=== PATIENT | female | born 1955 | race Caucasian/White ===

== ENCOUNTER 2019-05-24 10:06 | Emergency (ER) | payer BC ==
[2019-05-24 10:15] VITALS: BP 155/77
--- NOTE | 2019-05-24 10:34 | UC ---
Abdominal Pain Female HPI - HPI Summary HPI Summary: Patient presents to urgent care with her daughter. Patient's medical history significant for chronic lumbar back pain related to herniated disc and osteophytes. Patient takes Lyrica, Soma as needed, and Celebrex for this chronically. Patient states on 05/15 she developed increased pain in her low thoracic region. Patient states the pain is paraspinal radiating anteriorly around the flank bilaterally. Patient states his pain has been increasing in intensity as well as frequency. States is like sharp stabbing pain. Patient has been taking her Soma every 6 hours applying heat with little improvement. Patient states she is also noticed over the last 5 days progressive abdominal distention and pressure. Patient denies nausea. Patient states she is belching. Patient states she thought she was constipated and took some over-the -counter laxatives. Patient had a small bowel movement 4 days ago and none since. Patient has not had much of an appetite. Patient states she is concerned that it feels like it is getting bigger and bloated. Patient denies any vaginal discharge, itching, odor. No dysuria or hematuria. Patient denies fevers or chills. Patient delayed getting evaluated she had significant medications. Patient last Soma was at 6:00 this morning. Patient did have some leftover Percocet that she took was short relief for her back and belly pain. Patient has had abdominal surgeries including a left oophorectomy, appendicitis, and repeat . Patient's never had an SBO. Patient reports she did have a colonoscopy that had some noncancerous polyps removed and she is not due for repeat for 4-5 years. Patient states she's never been bloated like this before and is concerned. Patient's medications is up-to-date in the EMR by triage nurse repeat this visit. Of note, pt had her routine chiropractor adjustment 05/13/19 - History of Current Complaint Chief Complaint: UCGU Stated Complaint: BACK,FLANK & ABDOMINAL PAIN Time Seen by Provider: 05/24/19 10:33 Hx Obtained From: Patient ?: No Onset/Duration: Gradual Onset Severity Initially: Mild Severity Currently: Mild Pain Intensity: 4 Allergies/Adverse Reactions: Allergies Allergy/AdvReac Type Severity Reaction Status Date / Time No Known Allergies Allergy Verified 05/24/19 10:15 PMH/Surg Hx/FS Hx/Imm Hx Previously Healthy: Yes - chronic back pain - Surgical History Surgical History: Yes Surgery Procedure, Year, and Place: 3 C SECTIONS -1980,83,86. APPENDECTOMY partial ooph - Family History Known Family History: Positive: Non-Contributory - Social History Occupation: Retired Lives: With Family Alcohol Use: Daily Substance Use Type: None Smoking Status (MU): Former Smoker Review of Systems All Other Systems Reviewed And Are Negative: Yes Constitutional: Positive: Fatigue Gastrointestinal: Positive: Abdominal Pain, Nausea Genitourinary: Positive: Negative Motor: Positive: Negative Musculoskeletal: Positive: Other: - back pain Physical Exam - Summary Physical Exam Summary: Vital Signs Reviewed: Yes A+Ox3, appears uncomfortable with position change Eyes: Conjunctiva Clear, SUNDAR. EOM intact and full ENT: Hearing grossly normal TM x 2 clear, turbinates wnl, mmoist, uvula midline , no exudate, no erythema Neck: Positive: Supple Respiratory: Positive: No respiratory distress, No accessory muscle use + CTA throughout no w/r Cardiovascular: RRR nl s1, s2 no m/r CBT <2 sec , no bruits abd + distension + tympanic, mild diffuse tenderness - no guarding, no rebound Musculoskeletal Exam: + TTP bilateral paraspinal low thoracic back pain increased with direct palp, ROM upper ext. normal tone Neurological: Positive: Alert, + sensation throughout Psychological: Positive: Normal Response To examiner Skin: Positive: folliculitis appearing rash b/l mid back - pt states appeared following heating pad use, no vesicles, not concerning for shingles, no ecchymosis Triage Information Reviewed: Yes Vital Signs: Initial Vital Signs Temp 97.8 F 05/24/19 10:11 Pulse 81 05/24/19 10:11 Resp 16 05/24/19 10:11 BP 155/77 05/24/19 10:11 Pulse Ox 100 05/24/19 10:11 Abd Pain Female Course/Dx - Course Course Of Treatment: Patient presents to urgent care with progressive back pain despite taking prescribed Lyrica, increasing Soma frequency, and Celebrex. Patient also reports 5-6 days of abdominal bloating. Patient has had little results following enemas but has been having flatus. Patient states she is concerned that her belly bloating and uncontrolled pain. No fevers or chills. No trauma. On exam vital show an elevated blood pressure. Likely related to pain and today's visit. Patient is in obvious discomfort. Patient with point tenderness bilateral paraspinal distal thoracic area. Patient also has a diffuse distended abdomen with mild diffused tenderness. Patient is tympanic on exam. Discussed with patient differential. Urine is not convincing for infection or renal colic. [facility] could have a partial SBO given her repeat abdominal surgeries. Given the progression of her symptoms and a complex medical history recommend tumors from her for further evaluation and testing. Patient states understanding of plan. Patient will go by private vehicle. Patient's only for pain prior to leaving and she declined. Spoke to Karen discharge coordinator in the ED, aware patient coming. - Differential Dx/Diagnosis Provider Diagnosis: Acute abdominal pain, Back pain Discharge ED - Sign-Out/Discharge Documenting (check all that apply): Patient Departure All imaging exams completed and their final reports reviewed: No Studies - Discharge Plan Condition: Stable Disposition: HOME-RECOMMEND TO ED Patient Education Materials: Acute Abdominal Pain (ED) Referrals: Arelis Yung NP [Primary Care Provider] - Additional Instructions: The doctor that evaluated you today thinks that you need additional testing that can be completed the emergency department. It is recommended that you go directly to emergency department for further evaluation. This evaluation may include blood work or imaging. This testing will be directed and decided by the provider that evaluate you at the emergency department. If pain becomes worse, you feel lightheaded, you have uncontrolled vomiting, or you have any other concerns while you are being driven to emergency department as recommended to pullover and contact 911. - Billing Disposition and Condition Condition: STABLE Disposition: Home-Recommend to ED
== END 2019-05-24 11:02 | disposition home health service (06) ==
LOC: UCEAST 10:06
DX: M54.5 Low back pain (principal); R10.9 Unspecified abdominal pain; R53.83 Other fatigue; R11.0 Nausea; Z87.891 Personal history of nicotine dependence; Z90.721 Acquired absence of ovaries, unilateral; Z90.49 Acquired absence of other specified parts of digestive tract; M10.9 Gout, unspecified; Z79.899 Other long term (current) drug therapy; I10 Essential (primary) hypertension; R07.9 Chest pain, unspecified
CPT/HCPCS: 81003; 87086; 99212; G0463

== ENCOUNTER 2019-05-24 11:20 | Emergency (ER) | payer BC ==
--- NOTE | 2019-05-24 12:07 | ED ---
Complex/Multi-Sys Presentation - History Of Current Complaint Chief Complaint: EDBackInjuryPain Time Seen by Provider: 05/24/19 11:48 Hx Obtained From: Patient - Allergies/Home Medications Allergies/Adverse Reactions: Allergies Allergy/AdvReac Type Severity Reaction Status Date / Time No Known Allergies Allergy Verified 05/24/19 11:24 PMH/Surg Hx/FS Hx/Imm Hx Previously Healthy: Yes Endocrine/Hematology History: Denies: Hx Diabetes Cardiovascular History: Denies: Hx Hypertension, Hx Pacemaker/ICD History: Denies: Hx Renal Disease Musculoskeletal History: Reports: Hx Osteoporosis Sensory History: Denies: Hx Hearing Aid Psychiatric History: Denies: Hx Panic Disorder - Surgical History Surgery Procedure, Year, and Place: 3 C SECTIONS -1980,83,86. APPENDECTOMY partial ooph Infectious Disease History: No Infectious Disease History: Denies: Traveled Outside the [place] in Last 30 Days - Family History Known Family History: Positive: Non-Contributory - Social History Alcohol Use: Daily Substance Use Type: Reports: None Smoking Status (MU): Former Smoker Physical Exam Vital Signs On Initial Exam: Initial Vitals Temp Pulse Resp BP Pulse Ox 96.5 F 87 19 162/88 98 05/24/19 11:21 05/24/19 11:21 05/24/19 11:21 05/24/19 11:21 05/24/19 11:21 Diagnostics - Vital Signs Vital Signs Temp Pulse Resp BP Pulse Ox 05/24/19 11:21 96.5 F 87 19 162/88 98 - Laboratory Result Diagrams: 05/24/19 12:20 05/24/19 12:20 Lab Statement: Any lab studies that have been ordered have been reviewed, and results considered in the medical decision making process. Complex Multi-Symp Course/Dx Course Of Treatment: ECG done at 1226 shows a sinus rhythm of 64bpm, normal axis , no ST elevation or depressoin. Discharge ED - Discharge Plan Condition: Improved Disposition: HOME Prescriptions: oxyCODONE/Acetamin 5/325 MG* [Percocet 5/325 TAB*] 1 tab PO Q6H PRN #12 tab MDD 4 PRN Reason: Pain - Moderate Patient Education Materials: Constipation (ED), High Fiber Diet (ED), Vertebral Compression Fracture (ED), Gas and Bloating (ED) Referrals: Varn,Arelis, NEWSP[employer]NAGING [Primary Care Provider] - Jennifer Xiao MD [Medical Doctor] - Additional Instructions: Call PCP tomorrow for close follow up appointment Pain medication as directed Alternate between ice and head Increase fluids and fiber in diet Miralax as directed for constipation Return to ER for increased pain, chest pain, difficulty breathing, leg weakness/ numbness, loss of bowel or bladder function, or if concerned - Billing Disposition and Condition Condition: IMPROVED Disposition: Home
[2019-05-24] MEDS ORDERED: Morphine 4 MG/ML VIAL (1 ml) 4 MG/ML VIAL IV ONE (12:10)
[2019-05-24] MEDS ORDERED: Ketorolac INJ* 30 MG/ML 1 ML VIAL IV PUSH ONE (12:11)
[2019-05-24 12:30] LABS: ABS Lymphocytes 1.2 10^3/ul (1.0-4.8); ABS Monocytes 0.4 10^3/ul (0-0.8); ABS Neutrophils 4.1 10^3/ul (1.5-7.7); Eosinophil % 0.7 %; Hematocrit 40 % (35-47); Hemoglobin 13.6 g/dL (12.0-16.0); Lymphocyte % 20.4 %; Mean Corpuscular HGB Conc 34 g/dL (31-36); Mean Corpuscular Hemoglobin 33 pg (27-31); Mean Corpuscular Volume 97 fL (80-97); Mean Platelet Volume 7.4 fL (7.4-10.4); Platelet Count 299 10^3/uL (150-450); Red Cell Distribution Width 13 % (10-15); White Blood Count 5.8 10^3/uL (3.5-10.8)
[2019-05-24 12:45] LABS: Albumin 4.6 g/dL (3.2-5.2); Albumin/Globulin Ratio 1.6 (1-3); BUN/Creatinine Ratio 12.3 (8-20); C Reactive Protein 17.66 mg/L (<8.01); Calcium 9.8 mg/dL (8.6-10.3); EGFR African American 129.6 (>60); EGFR Non-African American 107.1 (>60); Globulin 2.9 g/dL (2-4); Potassium 4.3 mmol/L (3.5-5.0); Total Bilirubin 0.4 mg/dL (0.2-1.0); Total Protein 7.5 g/dL (6.4-8.9)
[2019-05-24] MEDS ORDERED: Iohexol 300* (CONTRAST) 10 ML SDV IV ONE (13:45)
[2019-05-24 15:36] VITALS: BP 153/76
--- NOTE | 2019-05-26 17:38 | ED ---
Abdominal Pain/Female - HPI Summary HPI Summary: Patient is a 62-year-old female who presents emergency department for several days of worsening mid back pain and abdominal pain. Patient states she has a history of chronic low back pain but states pain today feels different. Patient does not recall any falls or injuries. Denies numbness, tingling or weakness in upper or lower extremities. Denies bowel or bladder incontinence or retention. Patient also notes she's been having increased diffuse abdominal pain and bloating. Denies chest pain, shortness of breath, cough, fever, urinary symptoms. Patient is a history of osteoporosis, chronic back pain. Prescribed Celebrex and Soma by pain clinic. Patient seen at [facility] prior to arrival referred to the ER for further evaluation. - History of Current Complaint Chief Complaint: EDBackInjuryPain Stated Complaint: BACK PAIN PER PT Time Seen by Provider: 05/24/19 11:48 Hx Obtained From: Patient Pain Intensity: 2 Pain Scale Used: 0-10 Numeric Allergies/Adverse Reactions: Allergies Allergy/AdvReac Type Severity Reaction Status Date / Time No Known Allergies Allergy Verified 05/24/19 11:24 PMH/Surg Hx/FS Hx/Imm Hx Previously Healthy: Yes Endocrine/Hematology History: Denies: Hx Diabetes Cardiovascular History: Denies: Hx Hypertension, Hx Pacemaker/ICD History: Denies: Hx Renal Disease Musculoskeletal History: Reports: Hx Osteoporosis Sensory History: Denies: Hx Hearing Aid Psychiatric History: Denies: Hx Panic Disorder - Surgical History Surgery Procedure, Year, and Place: 3 C SECTIONS -1980,83,86. APPENDECTOMY partial ooph Infectious Disease History: No Infectious Disease History: Denies: Traveled Outside the [place] in Last 30 Days - Family History Known Family History: Positive: Non-Contributory - Social History Occupation: Retired Lives: With Family Alcohol Use: Daily Substance Use Type: Reports: None Smoking Status (MU): Former Smoker Review of Systems Constitutional: Negative Negative: Fever Eyes: Negative ENT: Negative Cardiovascular: Negative Negative: Palpitations, Chest Pain Respiratory: Negative Negative: Shortness Of Breath, Cough Positive: Abdominal Pain, Nausea. Negative: Vomiting, Diarrhea Genitourinary: Negative Negative: dysuria, flank pain Positive: Other - mid back pain Skin: Negative Negative: Rash Neurological: Negative Negative: Weakness, Paresthesia, Numbness All Other Systems Reviewed And Are Negative: Yes Physical Exam Triage Information Reviewed: Yes Vital Signs On Initial Exam: Initial Vitals Temp Pulse Resp BP Pulse Ox 96.5 F 87 19 162/88 98 05/24/19 11:21 05/24/19 11:21 05/24/19 11:21 05/24/19 11:21 05/24/19 11:21 Vital Signs Reviewed: Yes Appearance: Positive: Well-Appearing - Pt. sitting on side of bed, appears in pain but nontoxic. Daughter present. Skin: Positive: Warm, Dry Head/Face: Positive: Normal Head/Face Inspection Eyes: Positive: Normal, EOMI, SUNDAR, Conjunctiva Clear Neck: Positive: Supple Respiratory/Lung Sounds: Positive: Clear to Auscultation, Breath Sounds Present. Negative: Rales, Rhonchi, Wheezes Cardiovascular: Positive: Normal, RRR Abdomen Description: Positive: Other: - Slightly distended. Abd. is soft with diffuse tenderness throughout. Musculoskeletal: Positive: Normal, Strength/ROM Intact, Other - 5/5 strength in bilateral UEs and LEs. Midline tenderness over distal T spine. Neurological: Positive: Normal, CN Intact II-III Psychiatric: Positive: Affect/Mood Appropriate Procedures - Sedation Patient Received Moderate/Deep Sedation with Procedure: No Diagnostics - Vital Signs Vital Signs Temp Pulse Resp BP Pulse Ox 05/24/19 15:35 97.0 F 81 18 153/76 99 05/24/19 11:21 96.5 F 87 19 162/88 98 - Laboratory Lab Results: Lab Results 05/24/19 05/24/19 05/24/19 Range/Units 12:20 12:20 12:20 WBC 5.8 (3.5-10.8) 10^3/uL RBC 4.10 (3.70-4.87) 10^6 /uL Hgb 13.6 (12.0-16.0) g/dL Hct 40 (35-47) % MCV 97 (80-97) fL MCH 33 H (27-31) pg MCHC 34 (31-36) g/dL RDW 13 (10-15) % Plt Count 299 (150-450) 10^3/uL MPV 7.4 (7.4-10.4) fL Neut % (Auto) 71.6 % Lymph % (Auto) 20.4 % [place]oup % (Auto) 6.5 % Eos % (Auto) 0.7 % Baso % (Auto) 0.8 % Absolute Neuts (auto) 4.1 (1.5-7.7) 10^3/ul Absolute Lymphs (auto) 1.2 (1.0-4.8) 10^3/ul Absolute Monos (auto) 0.4 (0-0.8) 10^3/ul Absolute Eos (auto) 0.0 (0-0.6) 10^3/ul Absolute Basos (auto) 0.0 (0-0.2) 10^3/ul Absolute Nucleated RBC 0.0 10^3/ul Nucleated RBC % 0.0 Sodium 132 L (135-145) mmol/L Potassium 4.3 (3.5-5.0) mmol/L Chloride 97 L (101-111) mmol/L Carbon Dioxide 26 (22-32) mmol/L Anion Gap 9 (2-11) mmol/L BUN 7 (6-24) mg/dL Creatinine 0.57 (0.51-0.95) mg/dL Est GFR ( Amer) 129.6 (>60) Est GFR (Non-Af Amer) 107.1 (>60) BUN/Creatinine Ratio 12.3 (8-20) Glucose 104 H (70-100) mg/dL Lactic Acid 0.7 (0.5-2.0) mmol/L Calcium 9.8 (8.6-10.3) mg/dL Total Bilirubin 0.40 (0.2-1.0) mg/dL AST 29 (13-39) U/L ALT 48 (7-52) U/L Alkaline Phosphatase 116 H (34-104) U/L Troponin I 0.00 (<0.03) ng/mL C-Reactive Protein 17.66 H (<8.01) mg/L Total Protein 7.5 (6.4-8.9) g/dL Albumin 4.6 (3.2-5.2) g/dL Globulin 2.9 (2-4) g/dL Albumin/Globulin Ratio 1.6 (1-3) Result Diagrams: 05/24/19 12:20 05/24/19 12:20 Lab Statement: Any lab studies that have been ordered have been reviewed, and results considered in the medical decision making process. 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 Patient with mid back pain and abdominal pain. Afebrile. Patient was given IV Toradol for pain , declined morphine. Given increase in symptoms well obtain CT scan for further evaluation. ECG done at 1226 shows a sinus rhythm of 64bpm, normal axis , no ST elevation or depressoin. Labs are unremarkable other than mildly low chloride and sodium and minimally elevated CRP. Urinalysis negative for infection from convenient care. CT scan of abdomen and pelvis is negative for acute findings but does show large amount of stool. CT scan of the T-spine shows age-indeterminate compression fracture of T9, reading per radiology. Reexamination patient is feeling better and able ambulate without difficulty. Suspect abdominal pain and bloating is secondary to constipation. Patient's pain today is consistent with T9 compression fracture. We'll have her follow- up with neurosurgery in her PCP. Small prescription for Percocet prescribed for pain. Discussed bowel regimen with patient and she would like to try MiraLAX. She will return to the ER symptoms change or worsen. Patient understands and agrees with plan. - Diagnoses Differential Diagnosis: Positive: Abdominal Aortic Aneurysm, ACS, Appendicitis, Bowel Obstruction, Constipation, Renal Colic, Urinary Tract Infection Provider Diagnoses: Abdominal pain, Constipation, Thoracic compression fracture Discharge ED - Sign-Out/Discharge Documenting (check all that apply): Patient Departure - Discharge Plan Condition: Improved Disposition: HOME Prescriptions: oxyCODONE/Acetamin 5/325 MG* [Percocet 5/325 TAB*] 1 tab PO Q6H PRN #12 tab MDD 4 PRN Reason: Pain - Moderate Patient Education Materials: Constipation (ED), High Fiber Diet (ED), Vertebral Compression Fracture (ED), Gas and Bloating (ED) Referrals: Arelis Yung NP [Primary Care Provider] - Jennifer Xiao MD [Medical Doctor] - Additional Instructions: Call PCP tomorrow for close follow up appointment Pain medication as directed Alternate between ice and head Increase fluids and fiber in diet Miralax as directed for constipation Return to ER for increased pain, chest pain, difficulty breathing, leg weakness/ numbness, loss of bowel or bladder function, or if concerned - Billing Disposition and Condition Condition: IMPROVED Disposition: Home
== END 2019-05-24 15:30 | disposition home or self-care (01) ==
LOC: ED 11:20
DX: S22.070A Wedge compression fracture of T9-T10 vertebra, initial encounter for closed fracture (principal); X58.XXXA Exposure to other specified factors, initial encounter; Y92.9 Unspecified place or not applicable; M85.88 Other specified disorders of bone density and structure, other site; M51.34 Other intervertebral disc degeneration, thoracic region; M47.814 Spondylosis without myelopathy or radiculopathy, thoracic region; K76.0 Fatty (change of) liver, not elsewhere classified; K57.30 Diverticulosis of large intestine without perforation or abscess without bleeding; I70.0 Atherosclerosis of aorta; R10.84 Generalized abdominal pain; K59.00 Constipation, unspecified; Z87.891 Personal history of nicotine dependence; M54.5 Low back pain; R10.9 Unspecified abdominal pain; R53.83 Other fatigue; R11.0 Nausea; Z90.721 Acquired absence of ovaries, unilateral; Z90.49 Acquired absence of other specified parts of digestive tract
CPT/HCPCS: 36415; 72128; 74177; 80053; 83605; 84484; 85025; 86140; 93005; 96374; 96375; 99282; J1885; Q9967